=== PATIENT | female | born 1970 | race Caucasian/White ===

== ENCOUNTER 2019-02-06 15:11 | Inpatient (IN) ==
[2019-02-06] MEDS ORDERED: THIAMINE INJ 100 MG, FOLIC ACID INJ 1 MG, MAGNESIUM SULF INJ 2 GM, MULTIVITAMIN INJ 10 ... IV ONE (16:17)
[2019-02-06 16:25] LABS: Basophils # 0.1 10*3/uL (0.0-0.2); Basophils % 0.7 % (0.0-0.8); Eosinophils % 0.4 % (0.00-10.9); Hematocrit 37.6 VOL% (35.7-47.0); Hemoglobin 13.2 GM/DL (12.0-16.0); Immature Granulocytes % 0.4 %; Immature Granulocytes Absolute 0.03 #; Lymphocytes # 2.6 10*3/uL (1.4-4.0); Mean Corpuscular HGB Conc 35.1 GM/DL (32-36); Mean Corpuscular Volume 98.9 FL (87-102); Mean Platelet Volume 9.7 FL (9.6-12.0); Monocytes % 9.9 % (1.7-12.7); Neutrophils % 58.6 % (38.7-73.9); Platelet Count 413 T/CUMM (130-400); Red Cell Distribution Width 12.1 % (9.3-17.3); White Blood Count 8.6 T/CUMM (4-12)
[2019-02-06 16:39] LABS: ABG HCO3 25.7 MMOL/L (20-26); ABG PCO2 33.4 MM HG (35-48); ABG PH 7.504 (7.35-7.45); ABG PO2 76.2 MM HG (80-95); ABG TCO2 26.7 MMOL/L (23-27); Allen Test Positive; Pt O2 Delivery Device Room Air
[2019-02-06 16:42] LABS: PT Patient Result 10.8 SECS (9.6-12.2)
[2019-02-06 16:50] LABS: Bilirubin,Total 0.8 MG/DL (0.2-1.0); Calcium 9.2 MG/DL (8.5-10.1); Osmolality,Calculated 275.4 MOS/KG (273-304); Total Protein 6.8 G/DL (6.4-8.3)
[2019-02-06 16:51] LABS: Troponin I < 0.015 NG/ML (0.00-0.045)
[2019-02-06] MEDS ORDERED: POTASSIUM CHLORIDE 20 MEQ TABLET PO STA (16:55)
[2019-02-06 17:07] LABS: Prolactin 6.8 NG/ML
[2019-02-06 17:09] LABS: Apearance,Urine Slightly Hazy (Clear); Bilirubin,Urine Negative (Negative); Blood, Urine Negative (Negative); Glucose,Urine (UA) Negative (Negative); Hyaline Casts,Urine 14 /LPF (0-3); Ketones,Urine 5 mg/dL (Negative); Mucus,Urine Moderate /LPF (Occasional); Nitrite,Urine Negative (Negative); Protein,Urine Negative; RBC,Urine 3 /HPF (0-4); Squamous Epithelial Cell,Urine Occasional /HPF (0-10); Urine Color Amber (Yellow); Urine Specific Gravity 1.018 (1.001-1.035); Urine Urobilinogen < 2.0 EU/DL (0.2-1.0); WBC,Urine 3 /HPF (0-6)
[2019-02-06 17:15] LABS: Barbiturates Screen,Urine Negative (Negative); Benzodiazepines Screen,Urine Negative (Negative); Cannabinoid Screen,Urine Negative (Negative); Opiate Screen,Urine Negative (Negative); Phencyclidine Screen,Urine Negative (Negative)
[2019-02-06] MEDS ORDERED: ACETAMINOPHEN 325 MG TABLET PO PRN (17:45)
[2019-02-06] MEDS ORDERED: POTASSIUM CHLORIDE RIDER 10 MEQ in PREMIX 1 EACH IV PRN (17:57)
[2019-02-06] MEDS ORDERED: MAGNESIUM SULF RIDER 4 GM in PREMIX 1 EACH IV PRN (18:06)
[2019-02-06] MEDS: MAGNESIUM SULF RIDER 2 GM in PREMIX 1 EACH IV PRN (20:38)
[2019-02-06] MEDS: POTASSIUM CHLORIDE RIDER 10 MEQ in PREMIX 1 EACH IV SCH (22:35)
[2019-02-07] MEDS: POTASSIUM CHLORIDE RIDER 10 MEQ in PREMIX 1 EACH IV SCH ×5 (00:48→06:05)
[2019-02-07 03:06] LABS: ABG Base Excess 2.3 MMOL/L (-2.5-2.5); ABG HCO3 26.5 MMOL/L (20-26); ABG Oxygen Saturation 97.4 % (95-100); ABG PCO2 33.3 MM HG (35-48); ABG PH 7.488 (7.35-7.45); ABG PO2 83.9 MM HG (80-95); ABG TCO2 22.3 MMOL/L (23-27); Allen Test Positive; Pt O2 Delivery Device Room Air
[2019-02-07 05:08] LABS: Albumin 2.3 G/DL (3.4-5.0); Bilirubin,Total 0.7 MG/DL (0.2-1.0); Calcium 8.1 MG/DL (8.5-10.1); Osmolality,Calculated 277.3 MOS/KG (273-304); Total Protein 5.3 G/DL (6.4-8.3)
[2019-02-07 05:52] LABS: Free T4 (Free Thyroxine) 1.36 NG/DL (0.76-1.46); Thyroid Stimulating Hormone 1.01 uIU/ml (0.358-3.74)
[2019-02-07] MEDS: NEBIVOLOL 5 MG TABLET PO SCH (09:26)
[2019-02-07] MEDS: FOLIC ACID 1 MG TABLET PO SCH (09:26)
[2019-02-07] MEDS: THIAMINE 100 MG TABLET PO SCH (09:26)
[2019-02-07] MEDS: MULTIVITAMIN (CENTRUM) TABLET PO SCH (09:26)
[2019-02-07 12:29] LABS: Appearance,CSF Clear
[2019-02-07 12:30] LABS: Lymphocytes,CSF 70 %; Monocytes,CSF 20 %; Neutrophils,CSF 10 %; Red Blood Cell,CSF < 1 C/CUMM; White Blood Cell,CSF 12 C/CUMM
[2019-02-07 12:37] LABS: Glucose,CSF 56 MG/DL (40-70)
[2019-02-07] MEDS: POTASSIUM CHLORIDE INJ 40 MEQ, SODIUM CHLORIDE 23.4% CONC INJ 38.5 MEQ in STERILE WATER... IV SCH (12:58)
[2019-02-07] MEDS: ENOXAPARIN 40 MG/0.4 ML SYRINGE SUBCUT SCH (12:59)
[2019-02-07] MEDS: DOXYCYCLINE HYCLATE INJ 100 MG in SODIUM CHLORIDE 0.9% 100 ML IV SCH (12:59)
[2019-02-07 13:16] LABS: Basophils # 0.1 10*3/uL (0.0-0.2); Basophils % 0.9 % (0.0-0.8); Eosinophils # 0.1 10*3/uL (0.0-0.87); Eosinophils % 1.1 % (0.00-10.9); Hematocrit 39.5 VOL% (35.7-47.0); Hemoglobin 13.1 GM/DL (12.0-16.0); Immature Granulocytes % 0.3 %; Immature Granulocytes Absolute 0.02 #; Lymphocytes # 2.5 10*3/uL (1.4-4.0); Lymphocytes % 33.4 % (21.3-54.2); Mean Corpuscular HGB Conc 33.2 GM/DL (32-36); Mean Corpuscular Volume 102.1 FL (87-102); Mean Platelet Volume 9.9 FL (9.6-12.0); Monocytes % 10.7 % (1.7-12.7); Neutrophils % 53.6 % (38.7-73.9); Platelet Count 411 T/CUMM (130-400); Red Blood Count 3.87 MC/CUMM (3.8-5.5); Red Cell Distribution Width 12.2 % (9.3-17.3); White Blood Count 7.4 T/CUMM (4-12)
[2019-02-07 13:40] LABS: Albumin 2.9 G/DL (3.4-5.0); Bilirubin,Total 1.2 MG/DL (0.2-1.0); Osmolality,Calculated 282.8 MOS/KG (273-304); Total Protein 6.5 G/DL (6.4-8.3)
[2019-02-07] MEDS: LORazepam 2 MG/1 ML VIAL IV PRN (21:26)
[2019-02-08] MEDS: POTASSIUM CHLORIDE INJ 40 MEQ, SODIUM CHLORIDE 23.4% CONC INJ 38.5 MEQ in STERILE WATER... IV SCH ×3 (00:18→11:13)
[2019-02-08] MEDS: DOXYCYCLINE HYCLATE INJ 100 MG in SODIUM CHLORIDE 0.9% 100 ML IV SCH ×2 (00:50→12:41)
[2019-02-08 06:10] LABS: Albumin 2.4 G/DL (3.4-5.0); Calcium 8.8 MG/DL (8.5-10.1); Osmolality,Calculated 276.3 MOS/KG (273-304); Total Protein 5.6 G/DL (6.4-8.3)
[2019-02-08] MEDS: NEBIVOLOL 5 MG TABLET PO SCH (09:24)
[2019-02-08] MEDS: MULTIVITAMIN (CENTRUM) TABLET PO SCH (09:24)
[2019-02-08] MEDS: THIAMINE 100 MG TABLET PO SCH (09:24)
[2019-02-08] MEDS: FOLIC ACID 1 MG TABLET PO SCH (09:24)
[2019-02-08] MEDS: THIAMINE 200 MG/2 ML VIAL IV SCH ×3 (11:13→22:07)
[2019-02-08] MEDS: ENOXAPARIN 40 MG/0.4 ML SYRINGE SUBCUT SCH (12:42)
[2019-02-08] MEDS: MAGNESIUM SULF RIDER 2 GM in PREMIX 1 EACH IV PRN (17:29)
[2019-02-08] MEDS: MUPIROCIN 2% OINT 22 GM TUBE TOP SCH ×2 (18:38→21:56)
[2019-02-08] MEDS: LORazepam 2 MG/1 ML VIAL IV PRN (22:08)
[2019-02-09] MEDS: POTASSIUM CHLORIDE INJ 40 MEQ, SODIUM CHLORIDE 23.4% CONC INJ 38.5 MEQ in STERILE WATER... IV SCH ×3 (00:10→15:18)
[2019-02-09] MEDS: DOXYCYCLINE HYCLATE INJ 100 MG in SODIUM CHLORIDE 0.9% 100 ML IV SCH ×2 (00:58→14:15)
[2019-02-09 05:01] LABS: Albumin 2.6 G/DL (3.4-5.0); Bilirubin,Total 1.1 MG/DL (0.2-1.0); Calcium 9.1 MG/DL (8.5-10.1); Osmolality,Calculated 275.4 MOS/KG (273-304); Total Protein 6.1 G/DL (6.4-8.3)
[2019-02-09] MEDS: THIAMINE 200 MG/2 ML VIAL IV SCH ×3 (09:03→21:21)
[2019-02-09] MEDS: NEBIVOLOL 5 MG TABLET PO SCH (09:04)
[2019-02-09] MEDS: MUPIROCIN 2% OINT 22 GM TUBE TOP SCH ×2 (09:04→21:25)
[2019-02-09] MEDS: MULTIVITAMIN (CENTRUM) TABLET PO SCH (09:04)
[2019-02-09] MEDS: FOLIC ACID 1 MG TABLET PO SCH (09:04)
[2019-02-09] MEDS: ENOXAPARIN 40 MG/0.4 ML SYRINGE SUBCUT SCH (14:15)
[2019-02-09] MEDS ORDERED: LORazepam 2 MG/1 ML VIAL IV PRN (14:55)
[2019-02-10] MEDS ORDERED: ZIPRASIDONE 20 MG/1 ML VIAL IM PRN (01:32)
[2019-02-10] MEDS: POTASSIUM CHLORIDE INJ 40 MEQ, SODIUM CHLORIDE 23.4% CONC INJ 38.5 MEQ in STERILE WATER... IV SCH ×3 (03:40→23:48)
[2019-02-10 05:03] LABS: Basophils # 0.1 10*3/uL (0.0-0.2); Eosinophils % 0.6 % (0.00-10.9); Hematocrit 39.6 VOL% (35.7-47.0); Hemoglobin 13.1 GM/DL (12.0-16.0); Immature Granulocytes % 0.3 %; Immature Granulocytes Absolute 0.02 #; Lymphocytes # 2.1 10*3/uL (1.4-4.0); Lymphocytes % 30.9 % (21.3-54.2); Mean Corpuscular HGB Conc 33.1 GM/DL (32-36); Mean Corpuscular Volume 103.4 FL (87-102); Mean Platelet Volume 10.7 FL (9.6-12.0); Monocytes % 9.8 % (1.7-12.7); Neutrophils % 57.4 % (38.7-73.9); Red Blood Count 3.83 MC/CUMM (3.8-5.5); Red Cell Distribution Width 12.3 % (9.3-17.3); White Blood Count 6.9 T/CUMM (4-12)
[2019-02-10 05:04] LABS: Platelet Count 277 T/CUMM (130-400)
[2019-02-10 05:29] LABS: Hypochromasia 1+; Platelet Estimate Adequate
[2019-02-10 05:37] LABS: Calcium 9.5 MG/DL (8.5-10.1); Osmolality,Calculated 278.3 MOS/KG (273-304)
[2019-02-10] MEDS: NEBIVOLOL 5 MG TABLET PO SCH (08:40)
[2019-02-10] MEDS: MULTIVITAMIN (CENTRUM) TABLET PO SCH (08:40)
[2019-02-10] MEDS: THIAMINE 200 MG/2 ML VIAL IV SCH ×3 (08:40→20:35)
[2019-02-10] MEDS: FOLIC ACID 1 MG TABLET PO SCH (08:40)
[2019-02-10] MEDS: MUPIROCIN 2% OINT 22 GM TUBE TOP SCH ×2 (08:43→20:35)
[2019-02-10 11:42] LABS: Anti-Nuclear Antibody Pattern SPECKLED
[2019-02-10 11:59] LABS: Anti SS-A Antibodies < 16 EU/ML
[2019-02-10] MEDS: DOXYCYCLINE HYCLATE INJ 100 MG in SODIUM CHLORIDE 0.9% 100 ML IV SCH ×3 (13:06→23:48)
[2019-02-10] MEDS: MAGNESIUM CHLORIDE 64 MG TABLET PO SCH ×2 (13:07→20:35)
[2019-02-10] MEDS: ENOXAPARIN 40 MG/0.4 ML SYRINGE SUBCUT SCH (13:12)
[2019-02-11] MEDS ORDERED: CYANOCOBALAMIN 1000 MCG/1 ML VIAL IM SCH (09:00)
[2019-02-11] MEDS: MAGNESIUM CHLORIDE 64 MG TABLET PO SCH ×2 (09:15→20:30)
[2019-02-11] MEDS: NEBIVOLOL 5 MG TABLET PO SCH (09:15)
[2019-02-11] MEDS: FOLIC ACID 1 MG TABLET PO SCH (09:15)
[2019-02-11] MEDS: MULTIVITAMIN (CENTRUM) TABLET PO SCH (09:15)
[2019-02-11] MEDS: MUPIROCIN 2% OINT 22 GM TUBE TOP SCH ×2 (09:16→20:30)
[2019-02-11] MEDS: THIAMINE 200 MG/2 ML VIAL IV SCH ×3 (09:16→20:29)
[2019-02-11] MEDS ORDERED: THIAMINE INJ 100 MG, FOLIC ACID INJ 1 MG, MULTIVITAMIN INJ 10 ML in SODIUM CHLORIDE 0.4... IV ONE (10:05)
[2019-02-11] MEDS: POTASSIUM CHLORIDE INJ 40 MEQ, SODIUM CHLORIDE 23.4% CONC INJ 38.5 MEQ in STERILE WATER... IV SCH (10:10)
[2019-02-11 10:24] LABS: Double Stranded DNA Antibodies < 25.0 IU/ML
[2019-02-11 11:16] LABS: VDRL Spinal Fluid Negative (Negative)
[2019-02-11 11:20] LABS: Thyroglob. AB < 1.8 IU/mL (<4.0)
[2019-02-11] MEDS: ENOXAPARIN 40 MG/0.4 ML SYRINGE SUBCUT SCH (12:19)
[2019-02-11 13:56] LABS: CMV PCR Source CSF
[2019-02-11 13:57] LABS: Epstein-Barr Virus Result Negative (Negative); Epstein-Barr Virus Source CSF; Specimen Source CSF
[2019-02-12] MEDS: THIAMINE 200 MG/2 ML VIAL IV SCH (08:45)
[2019-02-12] MEDS: FOLIC ACID 1 MG TABLET PO SCH (08:45)
[2019-02-12] MEDS: MAGNESIUM CHLORIDE 64 MG TABLET PO SCH (08:45)
[2019-02-12] MEDS: MULTIVITAMIN (CENTRUM) TABLET PO SCH (08:45)
[2019-02-12] MEDS: MUPIROCIN 2% OINT 22 GM TUBE TOP SCH (08:45)
[2019-02-12] MEDS: NEBIVOLOL 5 MG TABLET PO SCH (08:45)
[2019-02-12] MEDS ORDERED: NEBIVOLOL 5 MG TABLET PO SCH (09:03)
[2019-02-12] MEDS ORDERED: LIDOCAINE 2% 5 ML VIAL ONE (10:15)
[2019-02-12] MEDS ORDERED: MIDAZOLAM 2 MG/2 ML VIAL ONE (10:15)
[2019-02-12] MEDS ORDERED: fentaNYL 100 MCG/2 ML VIAL ONE (10:15)
[2019-02-12] MEDS ORDERED: PROPOFOL 200 MG/20 ML VIAL IV ONE (10:15)
[2019-02-12 12:05] LABS: West Nile Virus Ab, IgG, CSF Negative (Negative); West Nile Virus Ab, IgM, CSF Negative (Negative)
[2019-02-12 12:24] VITALS: BP 139/94
[2019-02-12 13:36] LABS: M. Tuberculosis PCR Result Negative (Negative); M. Tuberculosis PCR Source CSF
[2019-02-12 21:06] LABS: Enterovirus PCR Source CSF
[2019-02-13 14:56] LABS: Adenovirus PCR Negative (Negative); Specimen Source CSF
[2019-02-13 16:16] LABS: Albumin, Serum 3510 mg/dL; CSF Olig Bands Interpretation 0 bands (<4); IgG Index, CSF 0.59 (<=0.85); IgG, CSF 2.7 mg/dL (<=8.1); IgG/Albumin Ratio, CSF 0.19 (<=0.21); Oligoclonal Bands CSF Bands 0 bands; Oligoconal Banding Serum Bands 0 bands; Synthesis Rate, CSF 1.83 mg/24 h (<=12)
== END 2019-02-12 12:45 | disposition swing bed (61) | DRG 57 ==
LOC: N.ED 15:11 → N.EDINP 15:11 → SUATTDRO 17:25 → N.5E 17:59 → SUATTDRO 02-08 07:11 → N.5E 02-09 19:01
PROVIDERS: ADMIT Internal Medicine Cardiovascular Disease; ATTEND Family Medicine

== ENCOUNTER 2020-11-14 14:47 | Inpatient (IN) ==
[2020-11-14] MEDS ORDERED: SODIUM CHLORIDE 0.9% 1,000 ML IV STA (15:14)
[2020-11-14] MEDS ORDERED: THIAMINE INJ 100 MG, FOLIC ACID INJ 1 MG, MAGNESIUM SULF INJ 2 GM, MULTIVITAMIN INJ 10 ... IV STA (15:15)
[2020-11-14] MEDS ORDERED: THIAMINE 200 MG/2 ML VIAL IV STA (15:15)
[2020-11-14] MEDS ORDERED: LORazepam 2 MG/1 ML VIAL IV STA (15:18)
[2020-11-14 15:36] LABS: Basophils % 0.4 % (0.0-0.8); Eosinophils % 0.4 % (0.00-10.9); Hematocrit 39.4 VOL% (35.7-47.0); Immature Granulocytes % 0.7 %; Immature Granulocytes Absolute 0.06 #; Lymphocytes # 1.3 10*3/uL (1.4-4.0); Lymphocytes % 14.2 % (21.3-54.2); Mean Corpuscular HGB Conc 35.5 GM/DL (32-36); Mean Corpuscular Volume 93.4 FL (87-102); Mean Platelet Volume 10.6 FL (9.6-12.0); Monocytes % 12.6 % (1.7-12.7); Neutrophils % 71.7 % (38.7-73.9); Platelet Count 109 T/CUMM (130-400); Red Blood Count 4.22 MC/CUMM (3.8-5.5); Red Cell Distribution Width 13.2 % (9.3-17.3); White Blood Count 9.1 T/CUMM (4-12)
[2020-11-14 15:52] LABS: Alanine Aminotransferase 49 U/L (13-56); Albumin 3.9 G/DL (3.4-5.0); Alkaline Phosphatase 84 U/L (45-117); Aspartate Amino Transferase 60 U/L (0-37); Blood Urea Nitrogen 11 MG/DL (7-18); Calcium 9.6 MG/DL (8.5-10.1); Carbon Dioxide 23 MMOL/L (21-32); Estimated Glom Filtration Rate 68 ML/MIN; Glucose 166 MG/DL (74-106); Osmolality,Calculated 264.7 MOS/KG (273-304); Potassium 2.7 MMOL/L (3.5-5.1); Sodium 131 MMOL/L (136-145); Total Protein 7.9 G/DL (6.4-8.2)
[2020-11-14] MEDS ORDERED: POTASSIUM CHLORIDE 20 MEQ TABLET PO STA (16:36)
[2020-11-14] MEDS ORDERED: ACETAMINOPHEN 325 MG TABLET PO PRN (17:29)
[2020-11-14] MEDS ORDERED: GLUCAGON 1 MG VIAL IM PRN (17:29)
[2020-11-14] MEDS ORDERED: ONDANSETRON 4 MG/2 ML VIAL IV PRN (17:29)
[2020-11-14] MEDS ORDERED: DEXTROSE 50% 25 GM/50 ML VIAL IV PRN (17:29)
[2020-11-14] MEDS ORDERED: POTASSIUM CHLORIDE 20 MEQ TABLET PO ONE (18:04)
[2020-11-14 18:10] LABS: Barbiturates Screen,Urine Negative (Negative); Benzodiazepines Screen,Urine Negative (Negative); Cannabinoid Screen,Urine Negative (Negative); Opiate Screen,Urine Negative (Negative); Phencyclidine Screen,Urine Negative (Negative)
[2020-11-14] MEDS: SODIUM CHLORIDE 0.9% 1,000 ML IV SCH (19:00)
[2020-11-14 19:56] LABS: Albumin 3.6 G/DL (3.4-5.0); Bilirubin,Total 1.6 MG/DL (0.20-1.00); Calcium 8.6 MG/DL (8.5-10.1); Osmolality,Calculated 271.8 MOS/KG (273-304); Potassium 2.7 MMOL/L (3.5-5.1); Total Protein 7.4 G/DL (6.4-8.2)
[2020-11-14] MEDS: chlordiazePOXIDE 25 MG CAPSULE PO SCH (22:32)
[2020-11-15] MEDS: chlordiazePOXIDE 25 MG CAPSULE PO SCH ×3 (02:19→17:53)
[2020-11-15] MEDS: SODIUM CHLORIDE 0.9% 1,000 ML IV SCH ×3 (02:33→16:40)
[2020-11-15 05:44] LABS: Basophils % 0.4 % (0.0-0.8); Eosinophils # 0.1 10*3/uL (0.0-0.87); Eosinophils % 0.7 % (0.00-10.9); Hemoglobin 12.5 GM/DL (12.0-16.0); Immature Granulocytes % 0.7 %; Immature Granulocytes Absolute 0.05 #; Lymphocytes # 1.4 10*3/uL (1.4-4.0); Lymphocytes % 18.7 % (21.3-54.2); Mean Corpuscular HGB Conc 34.7 GM/DL (32-36); Mean Corpuscular Volume 95.7 FL (87-102); Monocytes % 14.9 % (1.7-12.7); Neutrophils % 64.6 % (38.7-73.9); Red Blood Count 3.76 MC/CUMM (3.8-5.5); Red Cell Distribution Width 13.3 % (9.3-17.3); White Blood Count 7.2 T/CUMM (4-12)
[2020-11-15 05:45] LABS: Platelet Count 97 T/CUMM (130-400)
[2020-11-15 05:46] LABS: Calcium 8.6 MG/DL (8.5-10.1); Osmolality,Calculated 273.5 MOS/KG (273-304); Potassium 3.1 MMOL/L (3.5-5.1)
[2020-11-15 05:48] LABS: Platelet Estimate Decreased
[2020-11-15 06:04] LABS: Anisocytosis 1+; Macrocytosis 1+
[2020-11-15] MEDS: FOLIC ACID 1 MG TABLET PO SCH (08:26)
[2020-11-15] MEDS: MULTIVITAMIN (CENTRUM) TABLET PO SCH (08:26)
[2020-11-15] MEDS: THIAMINE 100 MG TABLET PO SCH (08:27)
[2020-11-15] MEDS ORDERED: POTASSIUM CHLORIDE 20 MEQ TABLET PO ONE (08:30)
[2020-11-15] MEDS ORDERED: LORazepam 2 MG/1 ML VIAL IV PRN (08:41)
[2020-11-16] MEDS: chlordiazePOXIDE 25 MG CAPSULE PO SCH ×3 (01:02→17:24)
[2020-11-16] MEDS: SODIUM CHLORIDE 0.9% 1,000 ML IV SCH ×2 (01:05→08:37)
[2020-11-16] MEDS: hydrALAZINE 20 MG/1 ML VIAL IV PRN ×3 (03:39→20:57)
[2020-11-16] MEDS: NEBIVOLOL 10 MG TABLET PO SCH (08:10)
[2020-11-16] MEDS: THIAMINE 100 MG TABLET PO SCH ×2 (08:10→20:53)
[2020-11-16] MEDS: MULTIVITAMIN (CENTRUM) TABLET PO SCH (08:10)
[2020-11-16] MEDS: FOLIC ACID 1 MG TABLET PO SCH (08:10)
[2020-11-16 08:37] LABS: Basophils % 0.5 % (0.0-0.8); Eosinophils # 0.1 10*3/uL (0.0-0.87); Eosinophils % 0.9 % (0.00-10.9); Hematocrit 38.7 VOL% (35.7-47.0); Hemoglobin 13.4 GM/DL (12.0-16.0); Immature Granulocytes % 0.9 %; Immature Granulocytes Absolute 0.07 #; Lymphocytes # 1.8 10*3/uL (1.4-4.0); Lymphocytes % 23.5 % (21.3-54.2); Mean Corpuscular HGB Conc 34.6 GM/DL (32-36); Mean Corpuscular Volume 96.5 FL (87-102); Mean Platelet Volume 10.4 FL (9.6-12.0); Monocytes % 16.8 % (1.7-12.7); Neutrophils % 57.4 % (38.7-73.9); Platelet Count 130 T/CUMM (130-400); Red Blood Count 4.01 MC/CUMM (3.8-5.5); Red Cell Distribution Width 13.5 % (9.3-17.3); White Blood Count 7.6 T/CUMM (4-12)
[2020-11-16 08:56] LABS: Eosinophils 1 % (0-10); Lymphocytes 22 % (20-55); Segmented Neutrophils 63 % (50-85); Total Cells Counted 100
[2020-11-16 08:57] LABS: Anisocytosis Slight; Atypical Lymphocytes Few; Nucleated Red Blood Cells 0 (0-5); Platelet Estimate Adequate; Reactive Lymphocytes Few
[2020-11-16 08:58] LABS: Macrocytosis Slight
[2020-11-16 09:08] LABS: Albumin 3.5 G/DL (3.4-5.0); Bilirubin,Total 1.7 MG/DL (0.20-1.00); Osmolality,Calculated 269.8 MOS/KG (273-304); Potassium 2.8 MMOL/L (3.5-5.1); Total Protein 7.7 G/DL (6.4-8.2)
[2020-11-16] MEDS: POTASSIUM CHLORIDE 20 MEQ TABLET PO SCH ×2 (10:22→11:41)
[2020-11-16] MEDS ORDERED: LORazepam 1 MG TABLET PO ONE (11:33)
[2020-11-16] MEDS ORDERED: MIDAZOLAM 2 MG/2 ML VIAL ONE ×2 (14:14→14:28)
[2020-11-16 15:27] LABS: Glucose,CSF 58 MG/DL (40-70)
[2020-11-16 18:34] LABS: Appearance,CSF Clear; Lymphocytes,CSF 60 %; Neutrophils,CSF 40 %; Red Blood Cell,CSF < 1 C/CUMM; White Blood Cell,CSF 17 C/CUMM
[2020-11-16] MEDS ORDERED: POTASSIUM CHLORIDE 20 MEQ TABLET PO ONE (20:00)
[2020-11-17] MEDS: chlordiazePOXIDE 25 MG CAPSULE PO SCH ×2 (05:13→19:21)
[2020-11-17 06:02] LABS: Basophils # 0.1 10*3/uL (0.0-0.2); Basophils % 0.8 % (0.0-0.8); Eosinophils # 0.1 10*3/uL (0.0-0.87); Eosinophils % 1.8 % (0.00-10.9); Hematocrit 37.7 VOL% (35.7-47.0); Hemoglobin 12.6 GM/DL (12.0-16.0); Immature Granulocytes % 1.1 %; Immature Granulocytes Absolute 0.07 #; Lymphocytes # 1.5 10*3/uL (1.4-4.0); Lymphocytes % 24.6 % (21.3-54.2); Mean Corpuscular HGB Conc 33.4 GM/DL (32-36); Mean Corpuscular Volume 99.7 FL (87-102); Monocytes % 22.8 % (1.7-12.7); Neutrophils % 48.9 % (38.7-73.9); Platelet Count 156 T/CUMM (130-400); Red Blood Count 3.78 MC/CUMM (3.8-5.5); Red Cell Distribution Width 13.8 % (9.3-17.3); White Blood Count 6.2 T/CUMM (4-12)
[2020-11-17 06:23] LABS: Eosinophils 4 % (0-10); Lymphocytes 23 % (20-55); Nucleated Red Blood Cells 1 (0-5); Segmented Neutrophils 54 % (50-85); Total Cells Counted 100
[2020-11-17 06:24] LABS: Platelet Estimate Normal
[2020-11-17 06:29] LABS: Albumin 2.9 G/DL (3.4-5.0); Bilirubin,Total 1.8 MG/DL (0.20-1.00); Osmolality,Calculated 275.4 MOS/KG (273-304); Potassium 3.5 MMOL/L (3.5-5.1); Total Protein 6.5 G/DL (6.4-8.2)
[2020-11-17] MEDS: POTASSIUM CHLORIDE 20 MEQ TABLET PO PRN ×2 (07:12→09:35)
[2020-11-17] MEDS: FOLIC ACID 1 MG TABLET PO SCH (09:31)
[2020-11-17] MEDS: DONEPEZIL 5 MG TABLET PO SCH (09:31)
[2020-11-17] MEDS: MULTIVITAMIN (CENTRUM) TABLET PO SCH (09:31)
[2020-11-17] MEDS: NEBIVOLOL 10 MG TABLET PO SCH (09:31)
[2020-11-17] MEDS: THIAMINE 100 MG TABLET PO SCH ×2 (09:31→20:46)
[2020-11-17] MEDS ORDERED: MAGNESIUM HYDROXIDE SUSP 30 ML UDCUP PO ONE (10:22)
[2020-11-17] MEDS: DOCUSATE SODIUM 100 MG CAPSULE PO SCH (20:46)
[2020-11-17] MEDS ORDERED: ZALEPLON 5 MG CAPSULE PO PRN (22:38)
[2020-11-18] MEDS: chlordiazePOXIDE 25 MG CAPSULE PO SCH (06:18)
[2020-11-18 08:02] VITALS: BP 123/93
[2020-11-18] MEDS ORDERED: chlordiazePOXIDE 25 MG CAPSULE PO SCH (08:30)
[2020-11-18] MEDS ORDERED: POLYETHYLENE GLYCOL POWDER 17 GM PACK PO SCH (09:00)
[2020-11-18] MEDS: DOCUSATE SODIUM 100 MG CAPSULE PO SCH (09:25)
[2020-11-18] MEDS: MULTIVITAMIN (CENTRUM) TABLET PO SCH (09:25)
[2020-11-18] MEDS: THIAMINE 100 MG TABLET PO SCH (09:25)
[2020-11-18] MEDS: FOLIC ACID 1 MG TABLET PO SCH (09:25)
[2020-11-18] MEDS: DONEPEZIL 5 MG TABLET PO SCH (09:25)
[2020-11-18] MEDS: NEBIVOLOL 10 MG TABLET PO SCH (09:25)
== END 2020-11-18 09:25 | disposition home or self-care (01) | DRG 897 ==
LOC: EDUNIT# → EDBD → N.EDINP 14:47 → N.ED 14:47 → N.3E 18:29
PROVIDERS: ADMIT Internal Medicine; ATTEND Internal Medicine